=== PATIENT | female | born 1975 | race African-American/Black ===

== ENCOUNTER 2022-08-12 15:14 | Emergency (ER) | payer SELFPAY ==
[2022-08-12] MEDS ORDERED: Acetaminophen 500 MG TAB ONE (15:59)
== END 2022-08-12 16:54 | disposition home or self-care (01) ==
LOC: CSHERS 15:14 → EEVIPCON 15:14 → CSHERS 16:54
DX: S00.03XA Contusion of scalp, initial encounter (principal); Y04.8XXA Assault by other bodily force, initial encounter; I10 Essential (primary) hypertension; J45.909 Unspecified asthma, uncomplicated
CPT/HCPCS: 70450